=== PATIENT | female | born 1955 | race Caucasian/White ===

== ENCOUNTER → 2017-02-20 | Outpatient (CLI) | payer BC | LOC: SLEEPLAB 10:28 | DX: G47.33 Obstructive sleep apnea (adult) (pediatric) (principal) ==

== ENCOUNTER → 2021-07-18 | Outpatient (CLI) | payer OTHER, BC | LOC: RAD 10:50 | PROVIDERS: ATTEND Nurse Practitioner | DX: M25.772 Osteophyte, left ankle (principal); M25.572 Pain in left ankle and joints of left foot; M25.771 Osteophyte, right ankle ==